=== PATIENT | male | born 1990 | race Caucasian/White ===

== ENCOUNTER 2018-12-10 12:31 | Emergency (ER) | payer OTHER, SELFPAY ==
[2018-12-10 12:55] VITALS: BP 163/93; PULSE 94; RESP 14; TEMP 37.6; O2SAT 98; BMI 26.3
[2018-12-10 13:31] LABS: Influenza A and B by PCR Rapid Negative (Negative)
[2018-12-10] MEDS: KETOROLAC 60 MG/2 ML VIAL 30 MG IV (13:42)
[2018-12-10] MEDS: SODIUM CHLORIDE 0.9% 1,000 ML 1000 ML IV (13:42)
[2018-12-10] MEDS: METOCLOPRAMIDE 10 MG/2 ML INJ IV (13:43)
[2018-12-10] MEDS: diphenhydrAMINE 50 MG/ML VIAL 25 MG IV (13:43)
--- NOTE | 2018-12-10 13:49 | ED.FEVER ---
HPI - Fever <LLOYD Lazaro - Last Filed: 12/10/18 15:31> General Chief Complaint: Fever Stated Complaint: NAUSIA, BODY ACHE THINKS FLU Time Seen by Provider: 12/10/18 13:13 Source: patient Mode of arrival: ambulatory Limitations: no limitations History of Present Illness HPI Narrative: the patient is a 28-year-old male with history of migraines was a marijuana smoker presents with a chief complaint of fever, body aches and chills that started last night. Also complains of nausea and vomiting. He does have a history of migraines, and states that this does not feel like a typical migraine given his systemic symptoms. he has not taken anything at home for pain. he denies any thunderclap sensation, confusion or altered mental status. He is concerned he has the flu. He complains of sore throat, cough and congestion. He does have a history of asthma as well. Related Data Previous Rx's Medication Instructions Recorded azithromycin See Rx Instructions .ROUTE 12/10/18 .COMPLEX #6 tab ondansetron 4 mg PO TID-QID PRN #20 tab 12/10/18 Allergies Allergy/AdvReac Type Severity Reaction Status Date / Time Penicillins Allergy Severe Rash Verified 12/10/18 12:59 Review of Systems <LLOYD Lazaro - Last Filed: 12/10/18 15:31> Review of Systems GENERAL: HPI HEENT: Denies sinus pain, ear pain, sore throat, difficulty swallowing, dizziness. RESPIRATORY: Denies dyspnea, cough, wheezing, hemoptysis, sputum. CARDIOVASCULAR: Denies chest pain, palpitations, orthopnea, edema, GASTROINTESTINAL: See HPI : Denies dysuria, frequency, incontinence, hematuria, urinary retention. MUSCULOSKELETAL: denies weakness, joint pain, or bony pain SKIN: Denies rash, skin lesions, or other NEUROLOGIC: See HPI PSYCHIATRIC: No concerning psychosocial issues. 12 point review of systems is negative except for those stated above PFSH <LLOYD Lazaro - Last Filed: 12/10/18 15:31> Medical History (Updated 12/10/18 @ 15:28 by LLOYD Lazaro) Asthma (Acute) Migraine (Acute) Social History Smoking Status: Current every day smoker Social History Smoking Status: Current every day smoker Exam <LLOYD Lazaro - Last Filed: 12/10/18 15:31> Narrative Exam Narrative: GENERAL: This is a well-nourished, well-developed patient, sitting in exam room with sunglasses on. HEAD: Atraumatic. Normocephalic. No temporal or scalp tenderness. EYES: Pupils equal round and reactive. Extraocular motions intact. No scleral icterus. No injection or drainage. no nystagmus noted. ENT: Nose without bleeding, purulent drainage or septal hematoma. Throat with erythema, without tonsillar hypertrophy or exudate. Uvula midline. Airway patent. NECK: Trachea midline. No JVD or lymphadenopathy. Supple, nontender, no meningeal signs. CARDIOVASCULAR: Regular rate and rhythm without murmurs, gallops, or rubs. RESPIRATORY: Clear to auscultation. Breath sounds equal bilaterally. No wheezes, rales, or rhonchi. Occasional cough on exam. No increased respiratory effort. No accessory muscle use. GASTROINTESTINAL: Abdomen soft, non-tender, nondistended. No hepato-splenomegaly, or palpable masses. No guarding. EXTREMITIES: No clubbing, cyanosis, or edema. No joint tenderness, effusion, or edema noted. BACK: Nontender without deformity or crepitance. No flank tenderness. NEURO: AOx3. Cranial nerves grossly intact. using all extremities equally. Ambulates with steady gait. SKIN: No rash or erythema. Initial Vital Signs Initial Vital Signs: Vital Signs Temperature 99.6 F 12/10/18 12:55 Pulse Rate 94 H 12/10/18 12:55 Respiratory Rate 14 12/10/18 12:55 Blood Pressure 163/93 H 12/10/18 12:55 Pulse Oximetry 98 12/10/18 12:55 <Jenny Joaquin DO - Last Filed: 12/10/18 18:14> Initial Vital Signs Initial Vital Signs: Vital Signs Temperature 99.6 F 12/10/18 12:55 Pulse Rate 94 H 12/10/18 12:55 Respiratory Rate 14 12/10/18 12:55 Blood Pressure 163/93 H 12/10/18 12:55 Pulse Oximetry 98 12/10/18 12:55 Course <LLOYD Lazaro - Last Filed: 12/10/18 15:31> Orders Ordered: ED Orders 12/10/18 13:00 FLU A and B [Influenza A and B by PCR Rapid] Stat 12/10/18 13:45 Amylase Stat Complete Blood Count AUTO DIFF Stat Comprehensive Metabolic Panel Stat Lipase Stat Discontinued Medications Diphenhydramine HCl (Benadryl) 25 mg IV NOW ONE Stop: 12/10/18 13:38 Last Admin: 12/10/18 13:43 Dose: 25 mg Sodium Chloride (Normal Saline 0.9%) 1,000 mls @ 1,000 mls/hr IV BOLUS ONE Stop: 12/10/18 14:35 Last Infusion: 12/10/18 14:49 Dose: 0 mls/hr Admin: 12/10/18 13:42 Dose: 1,000 mls/hr Ketorolac Tromethamine (Toradol) 30 mg IV NOW ONE Stop: 12/10/18 13:38 Last Admin: 12/10/18 13:42 Dose: 30 mg Metoclopramide HCl (Reglan) 10 mg IV NOW ONE Stop: 12/10/18 13:38 Last Admin: 12/10/18 13:43 Dose: 10 mg Vital Signs - 8 hr 12/10/18 12:55 12/10/18 14:28 12/10/18 15:29 Temperature 99.6 F 99.1 F Pulse Rate 94 H 73 65 Respiratory Rate 14 17 16 Blood Pressure 163/93 H Blood Pressure [Right Arm] 142/75 H 125/75 Pulse Oximetry 98 100 99 <Jenny Joaquin, - Last Filed: 12/10/18 18:14> Orders Ordered: ED Orders 12/10/18 13:00 FLU A and B [Influenza A and B by PCR Rapid] Stat 12/10/18 13:45 Amylase Stat Complete Blood Count AUTO DIFF Stat Comprehensive Metabolic Panel Stat Lipase Stat Discontinued Medications Diphenhydramine HCl (Benadryl) 25 mg IV NOW ONE Stop: 12/10/18 13:38 Last Admin: 12/10/18 13:43 Dose: 25 mg Sodium Chloride (Normal Saline 0.9%) 1,000 mls @ 1,000 mls/hr IV BOLUS ONE Stop: 12/10/18 14:35 Last Infusion: 12/10/18 14:49 Dose: 0 mls/hr Admin: 12/10/18 13:42 Dose: 1,000 mls/hr Ketorolac Tromethamine (Toradol) 30 mg IV NOW ONE Stop: 12/10/18 13:38 Last Admin: 12/10/18 13:42 Dose: 30 mg Metoclopramide HCl (Reglan) 10 mg IV NOW ONE Stop: 12/10/18 13:38 Last Admin: 12/10/18 13:43 Dose: 10 mg Vital Signs - 8 hr 12/10/18 12:55 12/10/18 14:28 12/10/18 15:29 Temperature 99.6 F 99.1 F Pulse Rate 94 H 73 65 Respiratory Rate 14 17 16 Blood Pressure 163/93 H Blood Pressure [Right Arm] 142/75 H 125/75 Pulse Oximetry 98 100 99 MDM - Fever <ALEXANDRIA Lazaro- - Last Filed: 12/10/18 15:31> Lab Data Result diagrams: 12/10/18 13:45 12/10/18 13:45 Lab Results 12/10/18 12/10/18 12/10/18 Range/Units 13:00 13:45 13:45 WBC 16.2 H (4.5-11.0) X10^3/uL RBC 5.83 (4.5-5.9) X10^6/uL Hgb 17.4 (13.5-17.5) g/dL Hct 49.4 (41-53) % MCV 84.8 (80-100) fL MCH 29.8 (26-34) PG MCHC 35.2 (30-36) % RDW 12.9 (11.6-14.8) % Plt Count 275 (150-400) X10^3/uL Neut % (Auto) 79.7 H (50-75) % Lymph % (Auto) 8.9 L (25-40) % [place] % (Auto) 10.5 (3-14) % Eos % (Auto) 0.4 L (2-4) % Baso % (Auto) 0.5 (0-2) % Neut # (Auto) 05098 H (1204-0474) /uL Lymph # (Auto) 1400 (9832-6976) /uL [place] # (Auto) 1700 H (0-900) /uL Eos # (Auto) 100 (0-450) /uL Baso # (Auto) 100 (0-100) /uL Sodium 138 (137-145) mmol/L Potassium 4.0 (3.4-5.1) mmol/L Chloride 105 (98-107) mmol/L Carbon Dioxide 19 L (22-32) mmol/L BUN 15 (9-20) mg/dL Creatinine 0.90 (0.66-1.25) mg/dL Estimated GFR > 60.0 (>60) mL/min BUN/Creatinine Ratio 16.7 (6-22) Glucose 107 H (70-100) mg/dL Calcium 9.8 (8.4-10.2) mg/dL Total Bilirubin 1.2 (0.2-1.3) mg/dL AST 22 (17-59) IU/L ALT 42 (21-72) IU/L Alkaline Phosphatase 130 H (38-126) U/L Total Protein 8.0 (6.3-8.2) g/dL Albumin 4.8 (3.5-5.0) g/dL Globulin 3.2 (1.7-4.1) g/dL Albumin/Globulin Ratio 1.5 (1.0-2.8) Amylase 51 (30-110) U/L Lipase 51 (23-300) U/L Influenza A & B (PCR) Negative (Negative) Point of Care Testing Rapid Strep A Positive MDM Narrative Medical decision making narrative: The patient is a 28-year-old male who presents with multiple complaints including nausea vomiting fever body aches and chills. He had a negative flu test. He does have history of migraines and initially declined a migraine cocktail as he did not want narcotics. I did discuss with him that I would not give him narcotics and offered Toradol, Benadryl and Reglan. Given that he had been vomiting all night, I suggested we check his electrolytes and UA. The patient was okay with that plan. On exam he appeared to have an erythematous throat, and his rapid strep was positive. he does have an elevated white blood cell count, but I attribute this to his positive strep. Given his allergy to amoxicillin, I am treating his strep throat with azithromycin. He is able to tolerate oral fluids prior to discharge. I did give him a prescription of Zofran given his nausea and vomiting. Discussed coming back to the emergency department for any acute concerns and following up with primary care provider. Patient had no questions or concerns upon discharge. <Jennyoscar Joaquin, DO - Last Filed: 12/10/18 18:14> Lab Data Lab Results 12/10/18 12/10/18 12/10/18 Range/Units 13:00 13:45 13:45 WBC 16.2 H (4.5-11.0) X10^3/uL RBC 5.83 (4.5-5.9) X10^6/uL Hgb 17.4 (13.5-17.5) g/dL Hct 49.4 (41-53) % MCV 84.8 (80-100) fL MCH 29.8 (26-34) PG MCHC 35.2 (30-36) % RDW 12.9 (11.6-14.8) % Plt Count 275 (150-400) X10^3/uL Neut % (Auto) 79.7 H (50-75) % Lymph % (Auto) 8.9 L (25-40) % [place] % (Auto) 10.5 (3-14) % Eos % (Auto) 0.4 L (2-4) % Baso % (Auto) 0.5 (0-2) % Neut # (Auto) 75235 H (8080-0945) /uL Lymph # (Auto) 1400 (7574-2173) /uL [place] # (Auto) 1700 H (0-900) /uL Eos # (Auto) 100 (0-450) /uL Baso # (Auto) 100 (0-100) /uL Sodium 138 (137-145) mmol/L Potassium 4.0 (3.4-5.1) mmol/L Chloride 105 (98-107) mmol/L Carbon Dioxide 19 L (22-32) mmol/L BUN 15 (9-20) mg/dL Creatinine 0.90 (0.66-1.25) mg/dL Estimated GFR > 60.0 (>60) mL/min BUN/Creatinine Ratio 16.7 (6-22) Glucose 107 H (70-100) mg/dL Calcium 9.8 (8.4-10.2) mg/dL Total Bilirubin 1.2 (0.2-1.3) mg/dL AST 22 (17-59) IU/L ALT 42 (21-72) IU/L Alkaline Phosphatase 130 H (38-126) U/L Total Protein 8.0 (6.3-8.2) g/dL Albumin 4.8 (3.5-5.0) g/dL Globulin 3.2 (1.7-4.1) g/dL Albumin/Globulin Ratio 1.5 (1.0-2.8) Amylase 51 (30-110) U/L Lipase 51 (23-300) U/L Influenza A & B (PCR) Negative (Negative) Point of Care Testing Rapid Strep A Positive Discharge Plan Departure Patient Disposition: Home Clinical Impression: Strep throat Discharge Date/Time: 12/10/18 15:35 Interventions: ED Discharge Assessment Last Done: 12/10/18 15:34 Instructions: DI for Strep Throat, DI for Fever (Symptom) -- Adult Activity Restrictions/Additional Instructions: You tested positive for strep throat today. Given her allergy I am treating you with azithromycin. Your contagious for the 1st 24 hours of antibiotics. I have also given you antinausea medication. Please continue [id number] medications as needed for throat discomfort and/or fever. Please follow up with her primary care provider for new or worsening symptoms. Please come back to the emergency department for any acute concerns including difficulty breathing, shortness of breath concern for heart attack or stroke. If you need help finding a primary care provider using contact the [facility] health water resources business segment leader at [phone]. Prescriptions: New azithromycin 250 mg tablet See Rx Instructions .ROUTE .COMPLEX Qty: 6 RF: 0 ondansetron 4 mg tablet,disintegrating 4 mg PO TID-QID PRN (Reason: nausea and vomiting) Qty: 20 RF: 0 <Jenny Joaquin DO - Last Filed: 12/10/18 18:14> Cosign ED Attending Cosignature Attestation: I was immediately available in the department for consultation. This documentation has been reviewed and I agree with assessment and plan. Supervised by Jenny Joaquin DO
[2018-12-10 14:28] VITALS: BP 142/75; PULSE 73; RESP 17; TEMP 37.3; O2SAT 100
[2018-12-10 14:30] LABS: Add Manual Diff / Slide Review NO; Basophils Absolute Auto 100 /uL (0-100); Basophils Percent Auto 0.5 % (0-2); Eosinophils Absolute Auto 100 /uL (0-450); Eosinophils Percent Auto 0.4 % (2-4); Hematocrit 49.4 % (41-53); Hemoglobin 17.4 g/dL (13.5-17.5); Lymphocytes Absolute Auto 1400 /uL (1100-4500); Lymphocytes Percent Auto 8.9 % (25-40); Mean Corpuscular HGB Conc 35.2 % (30-36); Mean Corpuscular Hemoglobin 29.8 PG (26-34); Mean Corpuscular Volume 84.8 fL (80-100); Monocytes Absolute Auto 1700 /uL (0-900); Monocytes Percent Auto 10.5 % (3-14); Neutrophils Absolute Auto 12900 /uL (1500-7000); Neutrophils Percent Auto 79.7 % (50-75); Platelet Count 275 X10^3/uL (150-400); Red Blood Cell Count 5.83 X10^6/uL (4.5-5.9); Red Cell Distribution Width 12.9 % (11.6-14.8); White Blood Cell Count 16.2 X10^3/uL (4.5-11.0)
[2018-12-10 14:40] LABS: Alanine Aminotransferase 42 IU/L (21-72); Albumin 4.8 g/dL (3.5-5.0); Albumin Globulin Ratio 1.5 (1.0-2.8); Alkaline Phosphatase 130 U/L (38-126); Amylase 51 U/L (30-110); Aspartate Aminotransferase 22 IU/L (17-59); BUN Creatinine Ratio 16.7 (6-22); Bilirubin Total 1.2 mg/dL (0.2-1.3); Blood Urea Nitrogen 15 mg/dL (9-20); Calcium 9.8 mg/dL (8.4-10.2); Carbon Dioxide 19 mmol/L (22-32); Chloride 105 mmol/L (98-107); Estimated Glomerular Filt Rate > 60.0 mL/min (>60); Globulin 3.2 g/dL (1.7-4.1); Glucose 107 mg/dL (70-100); HEMOLYSIS < 15 (0-50); Lipase 51 U/L (23-300); Sodium 138 mmol/L (137-145)
[2018-12-10 15:29] VITALS: BP 125/75; PULSE 65; RESP 16; O2SAT 99
== END 2018-12-10 15:35 | disposition home or self-care (01) ==
PROVIDERS: Emergency Medicine; Emergency Provider Nurse Practitioner Family
DX: J02.0 Streptococcal pharyngitis (principal); R11.2 Nausea with vomiting, unspecified
CPT/HCPCS: 36591; 80053; 82150; 83690; 85025; 87400; 87880; 96361; 96374; 96375; 99283; 99284; J1200; J1885; J2765

== ENCOUNTER → 2024-01-25 15:18 | Outpatient (CLI) | payer OTHER, MEDICAID, SELFPAY ==
--- NOTE | 2024-01-25 15:22 | DI.US.S_ITS ---
PROCEDURE: US ARTERIAL DUPLEX LE BI INDICATIONS: Essential (primary) hypertension TECHNIQUE: Color and pulse Doppler interrogation was performed of both lower extremity arterial systems, with image documentation. COMPARISON: None. FINDINGS: Right lower extremity: Common femoral artery: 104 cm/sec, with triphasic flow. Deep femoral artery: 44 cm/sec, with monophasic flow. Proximal superficial femoral artery: 400 cm/sec, with triphasic flow. Mid superficial femoral artery: 118 cm/sec, with triphasic flow. Distal superficial femoral artery: 77 cm/sec, with triphasic flow. Popliteal artery: 80 cm/sec, with triphasic flow. Posterior tibial artery: 74-110 cm/sec, with monophasic flow. Anterior tibial artery/dorsalis pedis: 55 cm/sec, with triphasic flow. Paul-scale imaging description: Noncalcified plaque in the proximal right superficial femoral artery. Left lower extremity: Common femoral artery: 112 cm/sec, with triphasic flow. Deep femoral artery: 85 cm/sec, with triphasic flow. Proximal superficial femoral artery: 99 cm/sec, with triphasic flow. Mid superficial femoral artery: 117 cm/sec, with triphasic flow. Distal superficial femoral artery: 70 cm/sec, with biphasic flow. Popliteal artery: 114 through 375 cm/sec, with no flow distally. Posterior tibial artery: 0 cm/sec, with no flow. Anterior tibial artery/dorsalis pedis: 0 cm/sec, with now flow. Paul-scale imaging description: Occlusion of the distal popliteal artery. IMPRESSION: Occlusion of the left lower extremity, at the distal popliteal artery. Calf vessels are occluded. 50-99% stenosis of the right superficial femoral artery due to noncalcified plaque. Accurate primary report sent to ordering provider by the technologist at the time of exam. The patient was sent to the hospital for admission. Dictated by: Tyron Queen M.D. on 01/25/2024 at 17:57 Approved by: Tyron Queen M.D. on 01/25/2024 at 18:00
== END ==
PROVIDERS: PCP Family Medicine Sports Medicine; Referring Provider Internal Medicine Cardiovascular Disease; Visit Provider Internal Medicine Cardiovascular Disease
DX: I70.201 Unspecified atherosclerosis of native arteries of extremities, right leg (principal); I77.9 Disorder of arteries and arterioles, unspecified; I10 Essential (primary) hypertension; R00.2 Palpitations
CPT/HCPCS: 93925

== ENCOUNTER 2024-11-14 16:58 | Emergency (ER) | payer OTHER, SELFPAY ==
[2024-11-14] VITALS (10 sets, daily range): BP systolic 111–121; BP diastolic 63–71; PULSE 67–117; RESP 12–26; TEMP 36.6; O2SAT 95–100; BMI 26.2
--- NOTE | 2024-11-14 17:05 | EKG_ITS ---
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
--- NOTE | 2024-11-14 17:05 | DI.RAD.S_ITS ---
PROCEDURE: XR CHEST 1V INDICATIONS: suspected sepsis TECHNIQUE: One view of the chest was acquired. COMPARISON: None. FINDINGS: Surgical changes and devices: None. Lungs and pleura: Lungs are clear. No pleural effusions or pneumothorax. Mediastinum: Mediastinal contours appear normal. Heart size is normal. Bones and chest wall: No suspicious bony lesions. Overlying soft tissues appear unremarkable. IMPRESSION: No acute cardiopulmonary abnormality is seen. Dictated by: Dyllan Almanza M.D. on 11/14/2024 at 17:46 Approved by: Dyllan Almanza M.D. on 11/14/2024 at 17:46
--- NOTE | 2024-11-14 17:22 | ED_ITS ---
HPI - General Adult <Anya Briceno MD - Last Filed: 11/15/24 07:17> General Chief complaint: Abdominal Pain Stated complaint: sent by MD for blood transfusion Time Seen by Provider: 11/14/24 17:00 Related Data Previous Rx's Medication Instructions Recorded azithromycin 250 mg tablet See Rx Instructions PO .COMPLEX #6 12/10/18 tabs ondansetron 4 mg disintegrating 4 mg PO TID-QID PRN nausea and 12/10/18 tablet vomiting #20 tabs oxycodone 5 mg tablet 5 mg PO QID PRN pain #10 tabs 11/14/24 Allergies Allergy/AdvReac Type Severity Reaction Status Date / Time Penicillins Allergy Severe Rash Verified 12/10/18 12:59 <Jenny Joaquin DO - Last Filed: 11/15/24 02:08> General Source: patient, RN notes reviewed and old records reviewed Limitations: no limitations History of Present Illness HPI narrative: 34-year-old male history of asthma, childhood nephrotic syndrome, hypertension, antiphospholipid syndrome, dyslipidemia currently on warfarin who had recent hospitalization with discharge on 11/07/2024 initial 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 Ceron. This was followed with return to the OR on 10/28/2024 for reopening of recent laparotomy, partial omentectomy, mobilization of the right colon with Dr. Ruiz and Dr. Munoz patient was found to have edema but no active bleeding patient had it persistent nausea or vomiting hiccups and migraine headaches throughout his hospital stay had slowly worsening acute blood-loss anemia with a hemoglobin from 13.6 down to 7.1/4 days CTA did show blood around the esophageal hiatus and at the right colon and patient returned to the OR afterwards was in the ICU ultimately moved back to the floor but developed a new aspiration pneumonia was treated with cefepime and had ongoing ileus was on TPN for a period of time and resumed clear to general diet. During his stay patient did have an MRCP findings were consistent with postop related changes. Patient presents today with complaint of pale, no appetite abdominal wound having some liquid multiple yimi intact reports a 25 lb weight loss in the past 2 weeks. Patient states no fevers or chills. Pain has been localized to the abdomen he states not worsening since his surgery but not significantly improving. He denies any chest pain or pressure. No new shortness of breath. Occasionally has some nausea but not persistently. No vomiting. States he has been having bowel movements they have been sort of watery no bright red blood or melanotic stools. No dysuria urgency or frequency. No other issues with urination. No new swelling in extremities. He feels like his incision overall looks okay. Patient has been taking oxycodone 5 mg q.4 hours for pain management. He has follow up this with his surgical team. He was saw primary care today to establish they wanted labs and told him to come to the ER as his white blood cell count was elevated. Patient states he has not had any prior surgeries before his hospitalization. He has quit tobacco and alcohol since his hospitalization. He was accompanied by his . Home medications currently include biscodyl, oxycodone, pantoprazole, senna, trazodone, albuterol PRN, atorvastatin, Feosol, folic acid, lisinopril, nicotine patch and warfarin. Review of Systems <Jenny Joaquin DO - Last Filed: 11/15/24 02:08> Review of Systems ROS Unobtainable: All systems reviewed & are unremarkable except as noted in HPI and below Patient History <Anya Briceno MD - Last Filed: 11/15/24 07:17> Medical History Asthma Migraine Social History Smoking Status: Current every day smoker Smoking Status: Current every day smoker alcohol intake frequency: 0-2 drinks per day Exam <Anya Briceno MD - Last Filed: 11/15/24 07:17> Initial Vital Signs Initial Vital Signs: Vital Signs Pulse Rate 117 H 11/14/24 17:05 Pulse Oximetry 95 11/14/24 17:05 Oxygen Delivery Method Room Air 11/14/24 17:05 <Jenny Joaquin DO - Last Filed: 11/15/24 02:08> Narrative Exam Narrative: GENERAL: Alert and oriented x three, male in mild distress HEENT: Head normocephalic, atraumatic, EOMI, pupils reactive, face symmetric, moist mucous membranes NECK: Supple, full range of motion CARDIOVASCULAR: Regular rate and rhythm without murmurs, rubs or gallops. RESPIRATORY: Breath sounds equal bilaterally, no wheezes rales or rhonchi. ABDOMEN: Soft, mild generalized tenderness patient has a large midline vertical incision with yimi present clean dry and intact without any evidence of dehiscence. There was no erythema extending from the edges there was no foul odor. There is some scabbing does not appear to be healing appropriately. Normoactive bowel sounds all 4 quadrants. No guarding or rebound, rigidity, no mass : No CVA tenderness EXTREMITIES: Normal range of motion, no clubbing or edema bilateral lower extremities. Neurovascularly intact. NEUROLOGICAL: Cranial nerves II through XII grossly intact. Moving all extremities SKIN: Warm, dry, no petechiae, no rashes or lesions otherwise noted. Initial Vital Signs Initial Vital Signs: Vital Signs Pulse Rate 117 H 11/14/24 17:05 Pulse Oximetry 95 11/14/24 17:05 Oxygen Delivery Method Room Air 11/14/24 17:05 Course <Anya Briceno MD - Last Filed: 11/15/24 07:17> Orders Ordered: Discontinued Medications Hydromorphone HCl (Hydromorphone 0.5 Mg Inj) 0.5 mg IV Q15MIN PRN PRN Reason: Pain, Last Admin: 11/14/24 19:39 Dose: 0.5 mg Documented By: Admin: 11/14/24 18:03 Dose: 0.5 mg Documented By: GENE Sodium Chloride (Normal Saline 0.9%) 1,000 mls @ 1,000 mls/hr IV BOLUS ONE Stop: 11/14/24 18:04 Last Infusion: 11/14/24 18:53 Dose: Infused Documented By: Admin: 11/14/24 17:57 Dose: 1,000 mls/hr Documented By: GENE Sodium Chloride (Normal Saline 0.9%) 1,000 mls @ 1,000 mls/hr IV BOLUS ONE Stop: 11/14/24 18:21 Last Infusion: 11/14/24 19:20 Dose: Infused Documented By: Admin: 11/14/24 18:54 Dose: 1,000 mls/hr Documented By: SB Ondansetron HCl (Ondansetron 4 Mg/2 Ml Inj) 4 mg IV NOW PRN PRN Reason: Nausea And Vomiting Ondansetron HCl (Ondansetron 4 Mg Odt) 4 mg SL NOW PRN PRN Reason: Nausea And Vomiting Ondansetron HCl (Ondansetron 4 Mg/2 Ml Inj) 4 mg IV NOW ONE Stop: 11/14/24 17:23 Last Admin: 11/14/24 18:03 Dose: 4 mg Documented By: GENE Vital Signs Vital signs: Vital Signs - 8 hr 11/14/24 18:30 11/14/24 18:49 11/14/24 18:49 Pulse Rate 73 73 Respiratory Rate 13 13 Blood Pressure 112/64 Pulse Oximetry 100 99 Oxygen Delivery Method 11/14/24 19:00 11/14/24 19:00 11/14/24 19:30 Pulse Rate 73 67 Respiratory Rate 12 14 Blood Pressure 115/63 Pulse Oximetry 99 99 Oxygen Delivery Method Room Air 11/14/24 19:30 11/14/24 20:00 11/14/24 20:00 Pulse Rate 72 Respiratory Rate 20 Blood Pressure 112/67 111/67 Pulse Oximetry 98 Oxygen Delivery Method <Jenny Joaquin, - Last Filed: 11/15/24 02:08> Orders Ordered: Discontinued Medications Hydromorphone HCl (Hydromorphone 0.5 Mg Inj) 0.5 mg IV Q15MIN PRN PRN Reason: Pain, Last Admin: 11/14/24 19:39 Dose: 0.5 mg Documented By: Admin: 11/14/24 18:03 Dose: 0.5 mg Documented By: GENE Sodium Chloride (Normal Saline 0.9%) 1,000 mls @ 1,000 mls/hr IV BOLUS ONE Stop: 11/14/24 18:04 Last Infusion: 11/14/24 18:53 Dose: Infused Documented By: Admin: 11/14/24 17:57 Dose: 1,000 mls/hr Documented By: GENE Sodium Chloride (Normal Saline 0.9%) 1,000 mls @ 1,000 mls/hr IV BOLUS ONE Stop: 11/14/24 18:21 Last Infusion: 11/14/24 19:20 Dose: Infused Documented By: Admin: 11/14/24 18:54 Dose: 1,000 mls/hr Documented By: SB Ondansetron HCl (Ondansetron 4 Mg/2 Ml Inj) 4 mg IV NOW PRN PRN Reason: Nausea And Vomiting Ondansetron HCl (Ondansetron 4 Mg Odt) 4 mg SL NOW PRN PRN Reason: Nausea And Vomiting Ondansetron HCl (Ondansetron 4 Mg/2 Ml Inj) 4 mg IV NOW ONE Stop: 11/14/24 17:23 Last Admin: 11/14/24 18:03 Dose: 4 mg Documented By: GENE Vital Signs Vital signs: Vital Signs - 8 hr 11/14/24 18:30 11/14/24 18:49 11/14/24 18:49 Pulse Rate 73 73 Respiratory Rate 13 13 Blood Pressure 112/64 Pulse Oximetry 100 99 Oxygen Delivery Method 11/14/24 19:00 11/14/24 19:00 11/14/24 19:30 Pulse Rate 73 67 Respiratory Rate 12 14 Blood Pressure 115/63 Pulse Oximetry 99 99 Oxygen Delivery Method Room Air 11/14/24 19:30 11/14/24 20:00 11/14/24 20:00 Pulse Rate 72 Respiratory Rate 20 Blood Pressure 112/67 111/67 Pulse Oximetry 98 Oxygen Delivery Method Medical Decision Making <Anya Briceno MD - Last Filed: 11/15/24 07:17> Lab Data 11/14/24 17:27 11/14/24 17:27 Labs: Lab Results 11/14/24 Range/Units 17:27 WBC 13.5 H (4.5-11.0) X10^3/uL RBC 4.19 L (4.5-5.9) X10^6/uL Hgb 12.3 L (13.5-17.5) g/dL Hct 36.3 L (41-53) % MCV 86.8 (80-100) fL MCH 29.3 (26-34) PG MCHC 33.8 (30-36) % RDW 14.3 (11.6-14.8) % Plt Count 457 H (150-400) X10^3/uL Neut % (Auto) 62.4 (50-75) % Lymph % (Auto) 28.2 (25-40) % [place] % (Auto) 7.4 (3-14) % Eos % (Auto) 0.7 L (2-4) % Baso % (Auto) 1.3 (0-2) % Neut # (Auto) 8500 H (6740-6042) /uL Lymph # (Auto) 3800 (9393-0012) /uL [place] # (Auto) 1000 H (0-900) /uL Eos # (Auto) 100 (0-450) /uL Baso # (Auto) 200 H (0-100) /uL PT 37.3 H (9.4-12.5) SECONDS INR 3.4 H (0.9-1.3) APTT 60 H (25.1-36.5) SECONDS Sodium 131 L (137-145) mmol/L Potassium 3.9 (3.4-5.1) mmol/L Chloride 99 (98-107) mmol/L Carbon Dioxide 19 L (22-32) mmol/L BUN 21 H (9-20) mg/dL Creatinine 1.27 H (0.66-1.25) mg/dL Estimated GFR > 60 (>60) mL/min BUN/Creatinine Ratio 16.5 (6-22) Glucose 133 H (70-100) mg/dL Lactate 1.2 (0.7-2.1) mmol/L Calcium 8.9 (8.4-10.2) mg/dL Total Bilirubin 1.2 (0.2-1.3) mg/dL AST 46 (17-59) IU/L ALT 83 H (<50) IU/L Alkaline Phosphatase 336 H (38-126) U/L Total Protein 8.0 (6.3-8.2) g/dL Albumin 4.0 (3.5-5.0) g/dL Globulin 4.0 (1.7-4.1) g/dL Albumin/Globulin Ratio 1.0 (1.0-2.8) Lipase 183 (23-300) U/L Procalcitonin 0.093 (<0.5) ng/mL Blood Type A Positive Antibody Screen Negative Urine Dip Bedside Urine Glucose Negative Bedside Urine Bilirubin - Negative Bedside Urine Ketone - Negative Urine Specific [place] 1.005 Bedside Urine Occult Blood - Negative Bedside Urine pH 5.5 Bedside Urine Protein - Negative Bedside Urine Urobilinogen - Negative Bedside Urine Nitrite - Negative Bedside Urine Leukocytes - Negative Esterase Point of care testing: Urine Dip Bedside Urine Glucose Negative Bedside Urine Bilirubin - Negative Bedside Urine Ketone - Negative Urine Specific [place] 1.005 Bedside Urine Occult Blood - Negative Bedside Urine pH 5.5 Bedside Urine Protein - Negative Bedside Urine Urobilinogen - Negative Bedside Urine Nitrite - Negative Bedside Urine Leukocytes - Negative Esterase <Jenny Joaquin, DO - Last Filed: 11/15/24 02:08> Lab Data Labs: Lab Results 11/14/24 Range/Units 17:27 WBC 13.5 H (4.5-11.0) X10^3/uL RBC 4.19 L (4.5-5.9) X10^6/uL Hgb 12.3 L (13.5-17.5) g/dL Hct 36.3 L (41-53) % MCV 86.8 (80-100) fL MCH 29.3 (26-34) PG MCHC 33.8 (30-36) % RDW 14.3 (11.6-14.8) % Plt Count 457 H (150-400) X10^3/uL Neut % (Auto) 62.4 (50-75) % Lymph % (Auto) 28.2 (25-40) % [place] % (Auto) 7.4 (3-14) % Eos % (Auto) 0.7 L (2-4) % Baso % (Auto) 1.3 (0-2) % Neut # (Auto) 8500 H (0599-0655) /uL Lymph # (Auto) 3800 (8777-6024) /uL [place] # (Auto) 1000 H (0-900) /uL Eos # (Auto) 100 (0-450) /uL Baso # (Auto) 200 H (0-100) /uL PT 37.3 H (9.4-12.5) SECONDS INR 3.4 H (0.9-1.3) APTT 60 H (25.1-36.5) SECONDS Sodium 131 L (137-145) mmol/L Potassium 3.9 (3.4-5.1) mmol/L Chloride 99 (98-107) mmol/L Carbon Dioxide 19 L (22-32) mmol/L BUN 21 H (9-20) mg/dL Creatinine 1.27 H (0.66-1.25) mg/dL Estimated GFR > 60 (>60) mL/min BUN/Creatinine Ratio 16.5 (6-22) Glucose 133 H (70-100) mg/dL Lactate 1.2 (0.7-2.1) mmol/L Calcium 8.9 (8.4-10.2) mg/dL Total Bilirubin 1.2 (0.2-1.3) mg/dL AST 46 (17-59) IU/L ALT 83 H (<50) IU/L Alkaline Phosphatase 336 H (38-126) U/L Total Protein 8.0 (6.3-8.2) g/dL Albumin 4.0 (3.5-5.0) g/dL Globulin 4.0 (1.7-4.1) g/dL Albumin/Globulin Ratio 1.0 (1.0-2.8) Lipase 183 (23-300) U/L Procalcitonin 0.093 (<0.5) ng/mL Blood Type A Positive Antibody Screen Negative Urine Dip Bedside Urine Glucose Negative Bedside Urine Bilirubin - Negative Bedside Urine Ketone - Negative Urine Specific [place] 1.005 Bedside Urine Occult Blood - Negative Bedside Urine pH 5.5 Bedside Urine Protein - Negative Bedside Urine Urobilinogen - Negative Bedside Urine Nitrite - Negative Bedside Urine Leukocytes - Negative Esterase Point of care testing: Urine Dip Bedside Urine Glucose Negative Bedside Urine Bilirubin - Negative Bedside Urine Ketone - Negative Urine Specific [place] 1.005 Bedside Urine Occult Blood - Negative Bedside Urine pH 5.5 Bedside Urine Protein - Negative Bedside Urine Urobilinogen - Negative Bedside Urine Nitrite - Negative Bedside Urine Leukocytes - Negative Esterase ECG Data Attestation: I personally reviewed and interpreted this ECG as follows: Prior ECG tracings: not available for review Interpretation: Sinus rhythm rate of 98 OH 122, QRS of 90 QTC of 431, no acute ST elevation appreciated. Patient does not have priors for comparison. [facility] Narrative Medical decision making narrative: Labs show white count of 13.5, hemoglobin of 12.3, platelets of 457. INR is slightly supratherapeutic at 3.4. Sodium is 131 potassium 3.9 chloride 99 CO2 is 19 with a BUN of 21 a creatinine of 1.27 glucose is 133 lactate 1.2 ALT is 83 with a alk-phos of 336 AST is 46 with a bilirubin of 1.2 and a lipase of 183. Procalcitonin 0.093 EKG shows sinus rhythm Patient had CT abdomen pelvis patchy bibasilar opacities concerning for infection in the lower chest small hiatal hernia large anterior abdominal wall incision with fluid in the incision site measuring up to 2.3 cm in the upper anterior abdomen heterogeneous hyperdense area measuring 5.8 x 2.2 x 6.9 cm retained foreign body is not excluded uncertain etiology and correlation for type of surgery performed. Peripancreatic fluid collection measuring 4.5 x 2.3 cm gallbladder wall appears prominent with mild adjacent edema maybe reactive no stones. Redemonstration occlusion proximal superior mesenteric artery with the constitution via collaterals. Chest x-ray no acute change Patient received fluids, Dilaudid and Zofran here in the department. Review of records hemoglobin today is 12.3 was 13.6 postoperatively they went down to 7.1 appears he was likely transfused in his at 12.3 today close to his initial postoperative hemoglobin. Patient per records I was able to view looks like he probably did have an DELORIS I do not have his creatinine but talking with family he they also indicate this. White count earlier today was 15 repeat today is 13.5. Patient's imaging workup does show some patchy changes he was treated for aspiration pneumonia in the hospital likely has some persisting changes on imaging. Patient's findings on CT may correlate with his recent surgery but unsure we will push images to [facility] and consult with surgery for their review he has had a somewhat complicated surgical history and recent hospital stay. Patient was updated of findings while awaiting call back. Spoke with Dr. Kilpatrick, vascular surgery she has not have current access start imaging but reviewed their most recent CT from 11/04/2024 and sounds like patient's fluid collections are actually improving and somewhat smaller he has follow up in 2 days on nontoxic appearing we did discuss he has a mild white count, creatinine slightly elevated anemia appears appropriate from his discharge. At this time plan for discharge home but was short term follow up with surgery and return precautions. Discharge Plan Departure Patient Disposition: Home Clinical Impression: Intra-abdominal fluid collection, Status post surgery Activity Restrictions/Additional Instructions: Follow up with surgery at your appointment on , I did speak with vascular surgery we reviewed your images it sounds like the fluid collections present or probably smaller and less than they were compared to CT on 11/04/2024. Continue with your current pain medication regimen. Your INR was slightly elevated at 3.4 follow up with your physician in the next 1-2 days to have it rechecked. Prescription for oxycodone was sent to [facility], you can take 1-2 tablets of oxycodone every 4 hours as needed for pain. Please return if you are developing fevers, new abdominal back or flank pain, new redness or swelling or any opening of your incision, vomiting, black or bloody stools, lightheadedness or passing out, new chest pain or shortness of breath or other new or concerning changes. Prescriptions: New oxycodone 5 mg tablet 5 mg PO QID PRN (Reason: pain) Qty: 10 0RF No Action azithromycin 250 mg tablet See Rx Instructions .ROUTE .COMPLEX Qty: 6 0RF Rx Instructions: take 500 mg today (day 1), then 250 mg for 4 days (days 2-5) ondansetron 4 mg tablet,disintegrating 4 mg PO TID-QID PRN (Reason: nausea and vomiting) Qty: 20 0RF Referrals: Jaiden Carrington MD [Primary Care Provider] - Stand Alone Forms: Patient Portal/API/Survey ED Sign-out <Anya Briceno MD - Last Filed: 11/15/24 07:17> Cosign ED Attending Cosvicenteature Attestation: I was immediately available in the department for consultation throughout this patient's visit. Anya Briceno MD
--- NOTE | 2024-11-14 17:22 | DI.CT.S_ITS ---
PROCEDURE: CT ABDOMEN PELVIS W CON INDICATIONS: post op pain TECHNIQUE: After the administration of intravenous contrast, axial sections acquired from the lung bases to the pubic symphysis. Coronal and sagittal reformats were performed. For radiation dose reduction, the following was used: automated exposure control, adjustment of mA and/or kV according to patient size. COMPARISON: [facility], CT, CT ABDOMEN PELVIS WITH CONTRAST, 05/26/2023, 14:17. FINDINGS: Image quality: Diagnostic. Lower Chest: Patchy bibasilar opacities concerning for infection. Small hiatal hernia. ABDOMEN: Liver: No solid mass. Gallbladder: No radiopaque gallstones. Gallbladder wall appears prominent with mild adjacent inflammation. Biliary ducts: No biliary dilation. Pancreas: No ductal dilation. Peripancreatic fluid collection measuring 4.5 x 2.3 cm (2/50). Spleen: Size is within normal limits. Adrenal Glands: No adrenal nodules. Kidneys and Ureters: No hydronephrosis. No solid mass. No complex renal cystic lesion which requires follow up. Stomach and Bowel: Normal colonic caliber, without significant wall thickening. Normal appendix. Peritoneum: There is a heterogeneous hyperdense area within the upper anterior abdominal wall measuring 5.8 x 2.2 x 6.9 cm in maximum dimension. No abnormal intraperitoneal fluid. Mild mesenteric edema. No free air. Ventral Wall: No significant ventral hernia. Large anterior abdominal incision. Fluid within the incision measuring up to 2.3 x 2.3 cm in transverse dimension. Abdominal Nodes: No retroperitoneal or mesenteric adenopathy by size criteria. Vessels: Aorta and inferior vena cava are normal in size. Occlusion of the proximal superior mesenteric artery is redemonstrated with reconstitution via collaterals. PELVIS: Pelvic Organs: Unremarkable. Bladder: No bladder wall thickening, accounting for underdistention. Pelvic Nodes: No enlarged lymph nodes. Miscellaneous: No inguinal hernias are seen. Bones: No aggressive osseous abnormality. IMPRESSION: 1. Large anterior abdominal wall incision with fluid in the incision site measuring up to 2.3 cm. 2. Within the upper anterior abdomen, there is a heterogeneous hyperdense area measuring 5.8 x 2.2 x 6.9 cm. This is of uncertain etiology and correlation with type of surgery was performed. Retained foreign body is not excluded. 3. Peripancreatic fluid collection measuring 4.5 x 2.3 cm. 4. Gallbladder wall appears prominent with mild adjacent edema. May be reactive. No calcified stones are seen. 5. Redemonstration of occlusion of the proximal superior mesenteric artery with reconstitution via collaterals. Dictated by: Dyllan Almanza M.D. on 11/14/2024 at 19:00 Approved by: Dyllan Almanza M.D. on 11/14/2024 at 19:08
[2024-11-14 17:44] LABS: INR 3.4 (0.9-1.3); Prothrombin Time 37.3 SECONDS (9.4-12.5)
[2024-11-14 17:47] LABS: PTT Partial Thromboplastin Tim 60 SECONDS (25.1-36.5)
[2024-11-14 17:48] LABS: Lactate (Lactic Acid) 1.2 mmol/L (0.7-2.1)
[2024-11-14 17:49] LABS: Add Manual Diff / Slide Review NO; Alanine Aminotransferase 83 IU/L (<50); Alkaline Phosphatase 336 U/L (38-126); Aspartate Aminotransferase 46 IU/L (17-59); BUN Creatinine Ratio 16.5 (6-22); Basophils Absolute Auto 200 /uL (0-100); Basophils Percent Auto 1.3 % (0-2); Bilirubin Total 1.2 mg/dL (0.2-1.3); Blood Urea Nitrogen 21 mg/dL (9-20); Calcium 8.9 mg/dL (8.4-10.2); Carbon Dioxide 19 mmol/L (22-32); Chloride 99 mmol/L (98-107); Eosinophils Absolute Auto 100 /uL (0-450); Eosinophils Percent Auto 0.7 % (2-4); Estimated Glomerular Filt Rate > 60 mL/min (>60); Glucose 133 mg/dL (70-100); HEMOLYSIS < 15 (0-50); Hematocrit 36.3 % (41-53); Hemoglobin 12.3 g/dL (13.5-17.5); Lipase 183 U/L (23-300); Lymphocytes Absolute Auto 3800 /uL (1100-4500); Lymphocytes Percent Auto 28.2 % (25-40); Mean Corpuscular HGB Conc 33.8 % (30-36); Mean Corpuscular Hemoglobin 29.3 PG (26-34); Mean Corpuscular Volume 86.8 fL (80-100); Monocytes Absolute Auto 1000 /uL (0-900); Monocytes Percent Auto 7.4 % (3-14); Neutrophils Absolute Auto 8500 /uL (1500-7000); Neutrophils Percent Auto 62.4 % (50-75); Platelet Count 457 X10^3/uL (150-400); Potassium 3.9 mmol/L (3.4-5.1); Red Blood Cell Count 4.19 X10^6/uL (4.5-5.9); Red Cell Distribution Width 14.3 % (11.6-14.8); Sodium 131 mmol/L (137-145); White Blood Cell Count 13.5 X10^3/uL (4.5-11.0)
[2024-11-14] MEDS: SODIUM CHLORIDE 0.9% 1,000 ML 1000 ML IV ×2 (17:57→18:54)
--- NOTE | 2024-11-14 17:59 | PC.NURSE ---
[facility] medical records requested at 2019. Fax sent to [phone].
[2024-11-14] MEDS: HYDROMORPHONE 0.5 MG INJ IV ×2 (18:03→19:39)
[2024-11-14] MEDS: ONDANSETRON 4 MG/2 ML INJ IV (18:03)
[2024-11-14 18:07] LABS: Procalcitonin 0.093 ng/mL (<0.5)
== END 2024-11-14 20:32 | disposition home or self-care (01) ==
PROVIDERS: Emergency Medicine; Emergency Provider Emergency Medicine; PCP Family Medicine Sports Medicine
DX: R18.8 Other ascites (principal); Z98.890 Other specified postprocedural states; G89.18 Other acute postprocedural pain; D64.9 Anemia, unspecified; Z79.01 Long term (current) use of anticoagulants; F17.210 Nicotine dependence, cigarettes, uncomplicated; R63.4 Abnormal weight loss
CPT/HCPCS: 36415; 71045; 74177; 80053; 81003; 83605; 83690; 84145; 85025; 85610; 85730; 86850; 86900; 86901; 87040; 93005; 96361; 96374; 96375; 96376; 99284; J1171; J2405; Q9967